=== PATIENT | male | born 1975 | race Caucasian/White ===

== ENCOUNTER → 2024-07-17 10:35 | Outpatient (REF) | payer SELFPAY | LOC: HWRAD 10:35 | PROVIDERS: ATTENDING PHYSICIAN Internal Medicine Cardiovascular Disease; FAMILY PHYSICIAN Internal Medicine | DX: E78.2 Mixed hyperlipidemia (principal); R03.0 Elevated blood-pressure reading, without diagnosis of hypertension | CPT/HCPCS: 75571 ==